=== PATIENT | male | born 1945 | race Caucasian/White ===

== ENCOUNTER 2022-09-03 09:46 | Outpatient (CLI) | payer MEDICARE, BC ==
--- NOTE | 2022-09-03 11:26 | SLEEP CARE CONSULTATION ---
Information from patient questionnaire entered by Aleyda Naranjo. I have reviewed and concur with the information entered by Aleyda Naranjo. This document represents the service I personally performed and the decisions made by me, Brielle Rodriguez ARNP. History of Present Illness Service Date and Time: 09/03/2022 0946 Reason for Visit: New patient, Previously diagnosed sleep apnea, sleep apnea on CPAP therapy Chief Complaint: reports: Other (transfer from [facility]) Date of Onset: 1 yr Usual bedtime: 10pm Time it takes to fall asleep: 15-20min Snores at night: Yes Observed to quit breathing while asleep: Yes Sleeps alone due to snoring: Yes Number of times waking at night: 2 Reasons for waking at night: reports: Bathroom Toss, Turn, or Twitch while sleeping: Yes Recalls having dreams: No Usually gets out of bed at: 730am Feels refreshed in the morning: Yes Morning headache: No Sleepy or fatigued during the day: Yes Ever fallen asleep while driving: No Takes day naps: Yes Dreams during day naps: No Prior sleep studies: Yes ([facility] ) Additional HPI information: NANY ARIAS was previously diagnosed to have unknown, AHI unknown, obstructive sleep apnea-hypopnea syndrome and comes in today to establish care for CPAP therapy. - Parasomnia Symptoms Ever been unable to move upon waking from sleep: No Walks in sleep: No Talks in sleep: No Ever acted out dreams in sleep: No Ever felt weak in the knees when startled or emotional: No Bothered by creepy, crawly, restless sensations in legs: No Problems with memory or concentration: No CPAP Compliance Data - Data Reviewed with Patient Average duration of nightly device use: 4 hours 45 minutes Compliance rate %: 53 ( days used) Current pressure setting (cmH2O): 4-12 Average residual AHI: 0.4 Central apnea: 0.1 Obstructive apnea: 0.1 Average large leak: 0.0 lpm Compliance data discussion: He is using a Resmed Airsense 11 s/u 04/2021. He is using a full face mask, F20. He is getting his supplies from [facility] but he has a hard time getting to talk to them. Subjective Missed days of use due to: reports: mask issues, other (hard to fall asleep after he gets up at night) Patient concerns: reports: mask discomfort (occasionally), air blowing in eyes, mask leak noise. denies: aerophagia, condensation in mask/hose, nasal congestion, dry mouth, nose, throat, epistaxis Observed to snore while using device: No Current pressure setting perceived as: comfortable On therapy, patient: reports: sleeping better (at first), other (still does not feel he gets enough sleep). denies: drowsiness while driving Initial [place] Sleepiness Scale score: 4 (09/02/22) Past Medical History Past Medical History: reports: Hypertension, Arthritis (both hands) Social History The patient's occupation is a RE. Patient is and lives in . Have you smoked in the past 12 months: No Alcohol use: Yes Alcohol amount and frequency: 1 glass every other day Caffeine use: Yes Caffeine amount and frequency: 2-3 cups daily Family History Family history of sleep disordered breathing: Yes Family Hx Sleep Apnea: Sibling: Sleep apnea - Treated ( in 2017) Allergies and Home Medications Known drug allergies: Yes (pencillin; sulfa drugs) Drug allergies reviewed: Yes Home medication list reviewed: Yes (see list in EMR) Review of Systems Weight gain over past 5 years: 20 Cardiovascular: reports: high blood pressure Gastrointestinal: denies: heartburn Urinary: reports: frequency Neurological: denies: headaches Psychiatric: denies: anxiety, depression Endocrine: reports: increased urination Physical Exam Vital signs obtained and entered by: ALEYDA Dinero MA Blood Pressure: 124/70 (left arm) Cuff size: regular Heart Rate: 68 O2 Saturation: 96 Height: 6 ft 4 in Weight: 295 lb 6.4 oz Body Mass Index: 35.9 BMI Classification: Obese Neck circumference: 18.5 Heart: regular rate and rhythm Lungs: clear bilaterally Impression and Plan 1. Obstructive Sleep Apnea-Hypopnea Syndrome, unknown, with fair treatment compliance and good apnea control. On CPAP therapy, the patient has better sleep quality and is more rested overall. He has been having issues with his mask. He feels the mask cushion is too small because it will pinch the top of his nose sometimes. He has a F20 mask. He also states he gets some mask leak noises. I had Jerm[employer], [employer], fit him with a hybrid Koki full face mask, size large cushion. He felt it was comfortable. I will add a mask fitting for this mask once I have a copy of his last sleep study from [facility]. I will update his prescription with his DME also at that time. Patient's apnea severity and rationale for treatment to reduce apnea, improve sleep quality and reduce cardiovascular and cerebrovascular events was reviewed. I also reviewed the benefit of consistent device use of CPAP for hypertension. 2. Obesity, unspecified. Currently patients BMI is 35.9. Obesity increases the risk of apnea, CPAP pressure requirements and overall health risks especially cardiovascular and diabetes. Thus patient is advised to lose weight. * Continue auto CPAP pressure at 4-12 cmH2O * Mask refitting for Koki Dreamwear mask * Update supplies * Notify me if snoring with mask or feeling that the pressure is too much or too little * Attempt to lose weight * Call this office if any problems using CPAP * Return for follow up in 1 year, or sooner if concerns arise Mask provided: Yes Counseling Topics: Spare mask, Weight loss health impact Visit Type: In Office Time Spent with Patient (minutes): 38 Provider Statement: I spent 100% of the Face to Face Visit with the patient with greater than 50% spent counseling the patient and coordination of care.
[2022-09-03 11:27] VITALS: BP 124/70
== END 2022-09-03 09:47 | disposition home or self-care (01) ==
LOC: SC 09:46
PROVIDERS: ATTEND Nurse Practitioner Family
DX: G47.33 Obstructive sleep apnea (adult) (pediatric) (principal); E66.9 Obesity, unspecified; Z68.35 Body mass index [BMI] 35.0-35.9, adult
CPT/HCPCS: 99203; G0463; 99212